=== PATIENT | female | born 1975 | race African-American/Black ===

== ENCOUNTER 2017-02-18 11:57 | Emergency (ER) | payer BC ==
[~2017-02-18 11:57] MED LIST: Iopamidol 370 76% 100 ML VIAL ONE
[2017-02-18 12:59] LABS: #Lymphocytes 1.4 thou/uL (1.20-3.40); #Monocytes 0.6 thou/uL (0.11-0.59); %Basophils 0.6 % (0.0-1.0); %Eosinophils 0.2 % (0.0-10.0); %Lymphocytes 20.5 % (21.0-51.0); Hematocrit 45.9 % (36.0-47.0); Mean Platelet Volume 9.5 fL (7.4-10.4); Red Blood Cell (RBC) Count 5.06 mill/uL (4.20-5.40)
[2017-02-18 13:12] LABS: ALT (SGPT) 16 U/L (8-55); AST (SGOT) 15 U/L (5-34); Alkaline Phosphatase 79 U/L (40-150); Anion Gap 16 mmol/L (10-20); BUN (Urea Nitrogen) 6 mg/dL (7.0-18.7); Bilirubin, Total 0.7 mg/dL (0.2-1.2); Calc. Creatinine Clearance 0 mL/min (70-130); Calcium 10.1 mg/dL (7.8-10.44); Carbon Dioxide 23 mmol/L (22-29); Chloride 103 mmol/L (98-107); Estimated GFR-MDRD Greater than 90; Globulin 3.7 g/dL (2.4-3.5); Lipase 8 U/L (8-78); Protein, Total 7.8 g/dL (6.0-8.3)
[2017-02-18] MEDS ORDERED: Piperacillin/Tazobactam 3.375 GM VIAL ONE (13:39)
[2017-02-18] MEDS ORDERED: Morphine 4 MG/ML Carpuject ONE (13:39)
[2017-02-18] MEDS ORDERED: Ondansetron HCl/PF 4 MG/2 ML Vial ONE (13:39)
[2017-02-18] MEDS ORDERED: Sodium Chloride 0.9% 100 ML ONE (13:40)
--- NOTE | 2017-02-18 15:53 | CT ---
EXAM: ABDOMEN CT WITH CONTRAST PELVIC CT WITH CONTRAST: HISTORY: Abdominal pain. Left lower quadrant pain. COMPARISON: 11/24/09. TECHNIQUE: Abdomen and pelvic CT is performed with IV and oral contrast. Coronal reformatted images are submitt ed for interpretation. FINDINGS: ABDOMEN CT: Lung bases are clear. There is air in the nondependent portion of the left ventricle which may be du e to IV access. A 1.0 cm hypodensity in the left hepatic lobe, incompletely evaluated. The remainder of the hepatic parenchyma is unremarkable. The spleen, pancreas, and adrenal glands have appropriate attenuation. The gallbladder is unremarkable. Intra- and extrahepatic portal vein is patent. Redemonstration of a cyst emanating from the upper pole of the right kidney measuring 1.6 x 2.3 cm. Symmetric enhancement of the kidneys. Bilaterally, no obstructive uropathy. No gastrohepatic, retrocrural, or periportal lymphadenopathy. There is free fluid in the left pericolic gutter along with left colonic fat stranding. No evidence of free air. No mass or lymphadenopathy. Gastric mucosa, duodenum, and multiple normal-caliber small bowel loops are noted. Ileocecal junctio n is normal. Normal-caliber contrast-filled appendix. The right hemicolon is unremarkable. There a re diverticula throughout the colon. There is mucosal thickening and pericolonic fat stranding invol ving the mid descending colon, compatible with diverticulitis. No abscess. No obvious perforation. There is fluid in the right lower quadrant, presumed to be reactive. PELVIC CT: There appears to be bicornuate uterus. There appears to be a degenerating uterine leiomyoma, incompl etely evaluated. No pelvic mass, lymphadenopathy, or free air. A small amount of free fluid is note d. The urinary bladder is unremarkable. No lytic or blastic lesions. IMPRESSION: 1. Diverticulitis involving the descending colon. 2. Bicornuate uterus with presumed uterine leiomyoma. Nonemergent [employer] consultation and pelvic MRI a re recommended. POS: [facility]
== END 2017-02-18 17:20 | disposition home or self-care (01) ==
LOC: SCSER 11:57
DX: K57.32 Diverticulitis of large intestine without perforation or abscess without bleeding (principal); D25.9 Leiomyoma of uterus, unspecified
CPT/HCPCS: 36415; 74177; 80053; 83690; 85025; 96365; 96375; J2270; J2405; J2543; J7050

== ENCOUNTER 2017-05-06 07:43 | Outpatient (CLI) | payer BC ==
[2017-05-06 08:41] LABS: Anion Gap 8 mmol/L (10-20); BUN (Urea Nitrogen) 10 mg/dL (7.0-18.7); Calc. Creatinine Clearance 0 mL/min (70-130); Calcium 9.6 mg/dL (7.8-10.44); Carbon Dioxide 30 mmol/L (22-29); Chloride 105 mmol/L (98-107); Estimated GFR-MDRD Greater than 90; Glucose 90 mg/dL (70-105); Potassium 4.2 mmol/L (3.5-5.1); Sodium 139 mmol/L (136-145)
[2017-05-06 08:45] LABS: Bilirubin Negative (Negative); Blood, Urine Trace (Negative); Clarity CLEAR (Clear); Glucose, Urine (Dipstick) Negative (Negative); Leukocyte Negative (Negative); Nitrite Negative (Negative); Protein, Urine (Dipstick) Negative (Neg-Trace); Specific Gravity, Urine 1.014 (1.002-1.036); Urobilinogen 0.2 mg/dL (0.2-1.0)
[2017-05-06 08:50] LABS: Bacteria/HPF None Seen HPF (None Seen); Hyaline Casts/LPF 0-3 HYALINE CAST LPF (0-3 Hyaline); Pathc Cast-AUWi Flag 0.54 (0-2.49); RBC/HPF 0-3 HPF (0-3); WBC/HPF 0-3 HPF (0-3)
--- NOTE | 2017-05-06 09:30 | RAD ---
ABDOMEN 1 VIEW: HISTORY: Renal calculi. COMPARISON: 09/28/16. FINDINGS: Gas and stool are apparent throughout the colon and rectum. Phleboliths project over the pelvis. No radiopaque urinary tract calculi are reliably demonstrated. POS: [facility]
--- NOTE | 2017-05-06 10:06 | ULT ---
RENAL ULTRASOUND: COMPARISON: 09/28/16. HISTORY: Renal calculus. TECHNIQUE: Sagittal and transverse imaging of the kidneys is performed. FINDINGS: Bilaterally, no hydronephrosis. The right kidney measures 9.9 x 5.2 x 4.9. The left kidney measures 10.9 x 5.3 x 5.3 cm. No evidence of a left renal complex cyst on the current ultrasound and on CT fr om 2016. There is an anechoic focus in the upper pole right kidney measuring 1.2 x 1.4 x 1.5 cm., compatible w ith a cyst. There is no definite sonographic evidence of a right-sided renal calculus. A nonshadowi ng echogenic focus is noted, but is not felt to represent a calculus. Correlation made with CT from February 11, 2017, does not demonstrate a definitive renal calculus. The urinary bladder is unremarkable. IMPRESSION: 1. No evidence of hydronephrosis. 2. No definite evidence of a right-sided renal calculus. Echogenic focus is noted in the mid portio n right kidney without associated shadowing. No definite/obvious corresponding calculus on recent CT . POS: [facility]
== END 2017-05-06 07:44 | disposition home or self-care (01) ==
LOC: ULT 07:43
PROVIDERS: ATTEND Urology
DX: N20.0 Calculus of kidney (principal); N28.1 Cyst of kidney, acquired; R35.0 Frequency of micturition
CPT/HCPCS: 36415; 74018; 76770; 80048; 81001; 87086

== ENCOUNTER 2018-01-31 14:42 | Outpatient (CLI) | payer BC | END 2018-01-31 14:43 | disposition home or self-care (01) | LOC: BICMAMMO 14:42 | PROVIDERS: ATTEND Obstetrics & Gynecology | DX: Z12.31 Encounter for screening mammogram for malignant neoplasm of breast (principal); Z80.3 Family history of malignant neoplasm of breast | CPT/HCPCS: 77063; 77067 ==

== ENCOUNTER 2018-05-08 14:14 | Outpatient (CLI) | payer BC ==
[2018-05-08 14:48] LABS: Anion Gap 13 mmol/L (10-20); BUN (Urea Nitrogen) 13 mg/dL (7.0-18.7); Calc. Creatinine Clearance 0 mL/min (70-130); Calcium 9.9 mg/dL (7.8-10.44); Carbon Dioxide 26 mmol/L (22-29); Chloride 105 mmol/L (98-107); Estimated GFR-MDRD Greater than 90; Glucose 73 mg/dL (70-105); Potassium 3.8 mmol/L (3.5-5.1); Sodium 140 mmol/L (136-145)
[2018-05-08 14:53] LABS: Bilirubin Negative (Negative); Blood, Urine Moderate (Negative); Clarity Clear (Clear); Glucose, Urine (Dipstick) Negative (Negative); Leukocyte Negative (Negative); Nitrite Negative (Negative); Protein, Urine (Dipstick) Negative (Neg-Trace); Specific Gravity, Urine 1.015 (1.005-1.030); Urobilinogen 0.2 mg/dL (0.2-1.0); pH, Urine 6.5 (5.0-9.0)
[2018-05-08 14:58] LABS: Bacteria/HPF 1+ HPF (None Seen); RBC/HPF 0-3 HPF (0-3); Squamous Epithelial 0-3 HPF (0-3); WBC/HPF 0-3 HPF (0-3)
--- NOTE | 2018-05-08 17:37 | RAD ---
KUB: Comparison: None. History: Previous kidney stone. FINDINGS: Single view of the abdomen shows nonspecific, nonobstructive bowel gas pattern. No suspicious calcifi cations are seen overlying either kidney or along the course of the ureters. Phleboliths are seen in the pelvis. IMPRESSION: No urinary collecting system calculi identified. POS: [facility]
--- NOTE | 2018-05-08 19:17 | ULT ---
RENAL SONOGRAM: 05/08/2018 HISTORY: Renal calculus. COMPARISON: 05/06/2017 FINDINGS: The right kidney measures 10.8 cm x 5.8 cm with the left kidney measuring 10.4 cm x 3.8 cm. There is no evidence of hydronephrosis, and no definite renal calculus is seen in either kidney. An echogeni c focus is seen within the mid portion of the right kidney without shadowing or prominent vessel. There is a hypoechoic cystic structure again seen in the superior pole of the right kidney. This cys tic structure has been present on prior exams and was larger in size on the study in 2014. It was al so larger in size on the study in 2017, measuring 2 cm in maximal dimensions, and now measures 1.8 cm in maximal dimension. There does appear to be internal echogenic material now present within this c ystic structure, although smaller in size. No additional cystic or solid mass is seen within the kid neys bilaterally. The urinary bladder is partially distended and has a normal sonographic appearance, with a urinary bl adder volume of 511.6 mL. Post void imaging was not performed. IMPRESSION: 1. Small, hypoechoic, cystic structure, superior pole, right kidney, which now contains echogenic ma terial, but this cystic structure is overall smaller in size, compared to prior studies in 2015 and 2 017, and does measure slightly larger in size compared to a study on 05/06/2017, where maximal dimens ion on that examination was 1.5 cm. Follow-up evaluation is recommended, as this may represent eithe r debris or a small amount of hemorrhage now present within the cyst. 2. No evidence of hydronephrosis, and no definitive renal calculus is seen. POS: [facility]
== END 2018-05-08 14:15 | disposition home or self-care (01) ==
LOC: SCSULT 14:14
PROVIDERS: ATTEND Urology
DX: N28.1 Cyst of kidney, acquired (principal); N20.0 Calculus of kidney; R93.421 Abnormal radiologic findings on diagnostic imaging of right kidney
CPT/HCPCS: 36415; 74018; 76770; 80048; 81001; 87086

== ENCOUNTER 2018-11-21 07:41 | Outpatient (CLI) | payer BC ==
--- NOTE | 2018-11-21 08:01 | ULT ---
Exam: Bilateral renal ultrasound HISTORY: Follow-up renal cyst COMPARISON: Renal ultrasound dated May 08, 2018 FINDINGS: Right kidney: The superior pole right renal cyst has slightly decreased in size now measuring 1.4 x 1 .3 x 1.5 cm where previously it measured 1.9 x 1.8 x 1.4 cm. No hydronephrosis is demonstrated. Right kidney measurements: 10.0 x 5.5 x 4.1 cm. Left kidney: Normal cortical echotexture. No hydronephrosis Left kidney measurements: 10.0 x 4.0 x 4.8 cm. Urinary bladder: Prevoid bladder volume was 64 cc. IMPRESSION: Decrease in size of the superior pole right renal cyst. No additional abnormality.
== END 2018-11-21 07:42 | disposition home or self-care (01) ==
LOC: SCSULT 07:41
PROVIDERS: ATTEND Urology
DX: N28.1 Cyst of kidney, acquired (principal); N20.0 Calculus of kidney
CPT/HCPCS: 76770

== ENCOUNTER 2020-11-30 10:18 | Outpatient (CLI) | payer BC | END 2020-11-30 10:19 | disposition home or self-care (01) | LOC: BICULT 10:18 → ULT 10:19 | PROVIDERS: ATTEND Urology | DX: N28.1 Cyst of kidney, acquired (principal); N20.0 Calculus of kidney; R35.0 Frequency of micturition | CPT/HCPCS: 74018; 76770 ==

== ENCOUNTER 2021-06-29 17:00 | Outpatient (CLI) | payer BC | END 2021-06-29 17:01 | disposition home or self-care (01) | LOC: SLEEPLAB 17:00 | PROVIDERS: ATTEND Family Medicine | DX: G47.33 Obstructive sleep apnea (adult) (pediatric) (principal); R09.89 Other specified symptoms and signs involving the circulatory and respiratory systems; R53.83 Other fatigue; R06.83 Snoring; G47.00 Insomnia, unspecified; J30.2 Other seasonal allergic rhinitis | CPT/HCPCS: 95800 ==